=== PATIENT | male | born 1965 ===

== ENCOUNTER 2023-10-22 14:59 | Emergency (ER) | payer BC ==
[2023-10-22] MEDS ORDERED: Sodium Chloride 0.9% 10 ML Syringe FLUSH PRN (15:19)
[2023-10-22 15:25] LABS: BASOPHILS PERCENT AUTO 0.3 % (0.0-1.0); EOSINOPHILS PERCENT AUTO 2.3 % (1.0-3.0); HEMATOCRIT 48.8 % (40.0-54.0); HEMOGLOBIN 16.5 g/dL (14.0-18.0); MEAN CORPUSCULAR HEMOGLOBIN 29.6 pg (27.0-34.0); MEAN CORPUSCULAR HGB CONC 33.8 g/dL (33.0-35.0); MEAN CORPUSCULAR VOLUME 87.6 fL (80-100); MONOCYTES PERCENT AUTO 9.2 % (2-8); NEUTROPHILS PERCENT AUTO 66.2 % (42.2-75.2); PLATELET COUNT,PLT 350 10^3/uL (150-450); RED BLOOD CELL COUNT 5.57 10^6/uL (4.6-6.2); WHITE BLOOD CELL COUNT,WBC 11.7 10^3/uL (5.0-10.0)
[2023-10-22 15:46] LABS: A/G RATIO 0.9; ALBUMIN 3.7 g/dL (3.4-5.0); ANION GAP 10.7 mEq/L (7-13); BILIRUBIN TOTAL 0.7 mg/dL (0.2-1.0); BUN/CREATININE RATIO 11.5 (No establ ref range); CALCIUM 9.1 mg/dL (8.5-10.1); CREATININE 1.31 mg/dL (0.70-1.30); EST CRCL DRUG DOSING (CG) 58.74 mL/min; MAGNESIUM 2.1 mg/dL (1.8-2.4); POTASSIUM,K 3.7 mmol/L (3.5-5.1); PROTEIN TOTAL,TP 7.6 g/dL (6.4-8.2)
== END 2023-10-22 16:16 | disposition home or self-care (01) ==
LOC: DL.ED 14:59
DX: R55 Syncope and collapse (principal); Z88.0 Allergy status to penicillin
CPT/HCPCS: 36415; 80053; 83735; 84484; 85025; 93005; 93010; 99284